=== PATIENT | male | born 1990 | race Caucasian/White ===

== ENCOUNTER 2016-05-16 06:44 | Emergency (ER) | payer OTHER ==
[2016-05-16 06:55] LABS: EOSINOPHIL (%) 0.5 % (0-5); EOSINOPHIL COUNT 0.1 K/uL (0-0.3); HEMATOCRIT 42.3 % (38.0-50.0); IMMATURE GRANULOCYTE (%) 0.8 % (0.0-0.7); IMMATURE GRANULOCYTE COUNT 0.7 K/uL; LYMPHOCYTE COUNT 1.5 K/uL (1.0-2.8); MCHC 34.8 G/DL (30.0-36.0); MEAN PLAT.VOLUME 11.7 uM^3 (9.0-12.4); MONOCYTE (%) 7.7 % (3-12); MONOCYTE COUNT 0.7 K/uL (0-0.8); NEUTROPHIL (%) 74.7 % (45-76); NEUTROPHIL COUNT 6.9 K/uL (1.8-6.4); PLATELET COUNT 203 K/uL (156-360); RBC DIS.WIDTH-SD 49.2 % (39-53); WHITE BLOOD COUNT 9.2 K/uL (4.1-10.2)
[2016-05-16 07:04] LABS: AMYLASE 70 IU/L (1-118); CHLORIDE 109 mEq/L (99-109); POTASSIUM 4.1 mEq/L (3.7-5.4); SODIUM 144 mEq/L (136-147)
[2016-05-16 07:06] LABS: GLUCOSE 104 mg/dL (70-99)
[2016-05-16 07:07] LABS: ANION GAP 14 MEQ/L (2-14)
[2016-05-16 07:09] LABS: SERUM ETHYL ALCOHOL 226 mg/dL
[2016-05-16 07:11] LABS: UREA NITROGEN (BUN) 14 mg/dL (9-23)
[2016-05-16 07:13] LABS: LIPASE 340 U/L (1.0-51.0)
[2016-05-16 07:15] LABS: GFR ESTIMATE (CALCULATED) > 59 mL/min/
[2016-05-16 08:39] LABS: ADD MIUA? YES; BILIRUBIN NEGATIVE; BLOOD LARGE; COLOR YELLOW ((YELLOW)); GLUCOSE (STRIP) NEGATIVE; KETONES NEGATIVE; LEUKOCYTES NEGATIVE; NITRITE NEGATIVE; PROTEIN (STRIP) 100; SPECIFIC GRAVITY 1.016 (1.000-1.030); UROBILINOGEN 0.2 MG/DL (0.2-1.0)
[2016-05-16 08:43] LABS: BACTERIA NONE SEEN; CASTS NONE SEEN /LPF; CRYSTALS NONE SEEN; EPITHELIAL CELLS RARE; MUCUS NONE SEEN; PATHOLOGICAL CAST NONE SEEN; RED BLOOD CELLS TNTC /HPF (0-5); SMALL ROUND CELL NONE SEEN; UCUL ADDED? NO; WHITE BLOOD CELLS 0-5 /HPF (0-5); YEAST-LIKE CELL NONE SEEN
[2016-05-16 08:47] LABS: ALKALINE PHOSPHATASE 54 IU/L (3-129); DIRECT BILIRUBIN 0.1 mg/dL (0.0-0.3); SAMPLE HEMOLYSIS CHECK 0; SAMPLE ICTERIC CHECK 0; SAMPLE LIPEMIA CHECK 0; TOTAL BILIRUBIN 0.2 MG/DL (0.0-1.0)
[2016-05-16 08:49] LABS: PROTHROMBIN TIME 10.4 (9.2-11.2); PTT 24.9 (25-32)
[2016-05-16 09:00] LABS: AMPHETAMINE NEGATIVE (500 ng/mL); BARBITURATES NEGATIVE (200 ng/mL); BENZODIAZEPINES NEGATIVE (150 ng/mL); COCAINE NEGATIVE (150 ng/mL); INTERNAL CONTROLS VALID? YES; METHADONE NEGATIVE (200 ng/mL); METHAMPHETAMINE NEGATIVE (500 ng/mL); OPIATES (MORPHINE) NEGATIVE (100 ng/mL); OXYCODONE NEGATIVE (100 ng/mL); PHENCYCLIDINE NEGATIVE (25 ng/mL); PROPOXYPHENE NEGATIVE (300 ng/mL); THC CANNABINOIDS NEGATIVE (50 ng/mL); TRICYCLIC ANTIDEPRESSANTS NEGATIVE (300 ng/mL)
== END 2016-05-16 09:40 | disposition short-term general hospital (02) ==
LOC: TRA 06:44
PROVIDERS: Emergency Medicine
PROC: 3E0234Z Introduction of Serum, Toxoid and Vaccine into Muscle, Percutaneous Approach (ICD-10-PCS; principal; 2016-05-16)
DX: S36.113A Laceration of liver, unspecified degree, initial encounter (principal); S01.81XA Laceration without foreign body of other part of head, initial encounter; S81.012A Laceration without foreign body, left knee, initial encounter; V49.40XA Driver injured in collision with unspecified motor vehicles in traffic accident, initial encounter; F10.129 Alcohol abuse with intoxication, unspecified; Y90.6 Blood alcohol level of 120-199 mg/100 ml; Z23 Encounter for immunization; K21.9 Gastro-esophageal reflux disease without esophagitis
CPT/HCPCS: 70450; 70486; 71260; 72125; 72129; 72132; 74177; 80048; 80076; 81003; 82150; 83690; 85025; 85610; 85730; 86850; 86900; 86901; 99281; 99285; G0480; J2405; J3010